=== PATIENT | female | born 1955 | race Caucasian/White ===

== ENCOUNTER 2017-06-18 07:46 | Emergency (ER) | END 2017-06-18 14:35 | disposition home or self-care (01) ==

== ENCOUNTER 2018-06-26 08:41 | Day surgery (SDC) | payer OTHER ==
[~2018-06-26] VITALS: Ht 147.3 cm; Wt 69.0 kg
[~2018-06-26 08:41] MED LIST: IBUP800T48 PO
[2018-06-26 09:57] VITALS: Ht 147.3 cm; Wt 69.0 kg
[2018-06-26] MEDS ORDERED: METOPROLOL (09:59)
[2018-06-26] MEDS ORDERED: AMLODIPINE (09:59)
[2018-06-26 10:17] VITALS: BP 175/78; PULSE 59; RESP 18
[2018-06-26] MEDS ORDERED: MIDAZOLAM 1 MG/ML 2 ML INJ ONE ×2 (10:47)
[2018-06-26] MEDS ORDERED: FENTAnyl 50 MCG/ML VIAL ONE (10:47)
[2018-06-26 11:01] VITALS: BP 136/67; RESP 18
== END 2018-06-26 14:58 | disposition home or self-care (01) ==
LOC: GIL 08:41
PROVIDERS: ATTEND Internal Medicine Gastroenterology
DX: Z12.11 Encounter for screening for malignant neoplasm of colon (principal); K64.8 Other hemorrhoids; I10 Essential (primary) hypertension
CPT/HCPCS: 45378; J2250; J3010; Z7610

== ENCOUNTER 2018-12-26 09:54 | Emergency (ER) | payer MEDICAID, OTHER ==
[~2018-12-26] VITALS: Wt 80.0 kg
[~2018-12-26 09:54] MED LIST changes: +AMLODIPINE; +BUTA1CAP38 PO; -IBUP800T48 PO; +METOPROLOL
[2018-12-26 09:58] VITALS: BP 159/75; PULSE 75; RESP 18
[2018-12-26] MEDS ORDERED: ACET/BUTAL/CAFF TAB PO ONE (12:00)
== END 2018-12-26 12:23 | disposition home or self-care (01) ==
LOC: FTE 09:54
DX: R51 Headache (principal); I10 Essential (primary) hypertension
CPT/HCPCS: 70450; Z7502; Z7610